=== PATIENT | male | born 1990 | race American Indian/Alaskan Native ===

== ENCOUNTER 2017-04-18 03:56 | Emergency (ER) | payer OTHER ==
[2017-04-18 05:34] VITALS: BP 119/67
[2017-04-18 06:16] LABS: Hematocrit 49.9 % (35.5-45.6); Hemoglobin 16.7 gm/dl (11.8-15.2); Mean Corpuscular HGB Conc 33 % (32-34); Mean Corpuscular Hemoglobin 31 pg (28-32); Mean Corpuscular Volume 92 fl (84-94); Platelet Count 184 K/mm3 (140-440); Red Blood Count 5.42 M/mm3 (3.65-5.03); Red Cell Distribution Width 12.9 % (13.2-15.2); White Blood Count 8.8 K/mm3 (4.5-11.0)
[2017-04-18 06:22] LABS: Alanine Aminotransferase 14 units/L (7-56); Albumin 4.7 g/dL (3.9-5); Albumin/Globulin Ratio 1.9 %; Alkaline Phosphatase 52 units/L (35-129); Anion Gap 18 mmol/L; BUN/Creatinine Ratio 12; Blood Urea Nitrogen 12 mg/dL (9-20); Calcium 9.3 mg/dL (8.4-10.2); Carbon Dioxide 27 mmol/L (22-30); Glucose 122 mg/dL (75-100); Lipase 47 units/L (13-60); Potassium 4.2 mmol/L (3.6-5.0); Sodium 145 mmol/L (137-145); Total Protein 7.2 g/dL (6.3-8.2)
[2017-04-18 07:19] LABS: Basophils % (Manual) 0 % (0.0-1.8); Blastocytes % (Manual) 0 %
[2017-04-18 07:22] LABS: Anisocytosis 1+; Diff Status Complete; Ovalocytes 1+
[2017-04-18 07:36] LABS: Bilirubin,Urine NEG (Negative); Blood,Urine SM (Negative); Ketones,Urine TR mg/dL (Negative); Leukocyte Esterase,Urine NEG (Negative); Nitrite,Urine NEG (Negative); Urobilinogen,Urine < 2.0 mg/dL (<2.0)
== END 2017-04-18 09:10 | disposition left against medical advice (07) ==
LOC: ED 03:56
DX: R11.2 Nausea with vomiting, unspecified (principal); R10.9 Unspecified abdominal pain; Z53.21 Procedure and treatment not carried out due to patient leaving prior to being seen by health care provider
CPT/HCPCS: 36415; 80053; 81001; 83690; 85007; 85025

== ENCOUNTER 2021-07-29 02:07 | Emergency (ER) | payer SELFPAY ==
[2021-07-29 02:19] VITALS: BP 113/77
--- NOTE | 2021-07-29 02:45 | XRay Report ---
CHEST 2 VIEWS INDICATION / CLINICAL INFORMATION: difficulty breathing, cough. COMPARISON: None available. FINDINGS: SUPPORT DEVICES: None. HEART / MEDIASTINUM: No significant abnormality. LUNGS / PLEURA: No significant pulmonary or pleural abnormality. No pneumothorax. ADDITIONAL FINDINGS: No significant additional findings. IMPRESSION: 1. No acute findings. Signer Name: Mirza Anderson MD Signed: 07/29/2021 2:41 AM Workstation Name: [id number]
--- NOTE | 2021-07-29 03:01 | Emergency Department Report ---
ED General Adult HPI - General Chief complaint: Dyspnea/Respdistress Stated complaint: BHASKAR Time Seen by Provider: 07/29/21 02:54 Source: patient, RN notes reviewed Mode of arrival: Ambulatory Limitations: No Limitations - History of Present Illness Initial comments: This patient is a 30-year-old gentleman with a history of chronic bronchitis and tobacco use, presenting to the ER today with a complaint of chest tightness, cough, wheezing and shortness of breath. Denies DVT/PE risk factors. Denies loss of taste and smell. States he is motivated to discontinue tobacco consumption. -: Gradual Consistency: constant Improves with: medication, rest Worsens with: movement - Related Data Previous Rx's Medication Instructions Recorded Last Taken Type Albuterol Sulfate [Ventolin HFA] 2 puff IH Q4H PRN #1 hfa.aer.ad 08/26/13 Unknown Rx Loratadine (Nf) [Claritin] 10 mg PO DAILY #30 tablet 08/26/13 Unknown Rx predniSONE [Deltasone] 20 mg PO TID #15 tab 08/26/13 Unknown Rx Albuterol Sulfate [Proair 90 mcg IH Q4HR PRN #2 aer.pow.ba 07/29/21 Unknown Rx Respiclick] Nicotine Polacrilex [Nicotine Gum] 4 mg BC PRN #1 pack 07/29/21 Unknown Rx predniSONE [Deltasone] 40 mg PO QDAY #8 tab 07/29/21 Unknown Rx Allergies Allergy/AdvReac Type Severity Reaction Status Date / Time No Known Allergies Allergy Verified 08/19/13 06:08 ED Review of Systems ROS: Stated complaint: BHASKAR Other details as noted in HPI Constitutional: malaise. denies: fever Eyes: denies: eye discharge ENT: congestion Respiratory: cough, shortness of breath, wheezing Cardiovascular: other (Chest tightness with cough). denies: syncope Gastrointestinal: denies: abdominal pain Neurological: weakness Psychiatric: anxiety ED Past Medical Hx - Social History Smoking Status: Current Every Day Smoker Substance Use Type: Alcohol - Medications Home Medications: Home Medications Medication Instructions Recorded Confirmed Last Taken Type Albuterol Sulfate [Ventolin HFA] 2 puff IH Q4H PRN #1 hfa.aer.ad 08/26/13 Unknown Rx Loratadine (Nf) [Claritin] 10 mg PO DAILY #30 tablet 08/26/13 Unknown Rx predniSONE [Deltasone] 20 mg PO TID #15 tab 08/26/13 Unknown Rx Albuterol Sulfate [Proair 90 mcg IH Q4HR PRN #2 aer.pow.ba 07/29/21 Unknown Rx Respiclick] Nicotine Polacrilex [Nicotine Gum] 4 mg BC PRN #1 pack 07/29/21 Unknown Rx predniSONE [Deltasone] 40 mg PO QDAY #8 tab 07/29/21 Unknown Rx ED Physical Exam - General Limitations: No Limitations General appearance: alert, anxious, in distress - Head Head exam: Present: atraumatic, normocephalic - Eye Eye exam: Present: normal appearance, EOMI. Absent: nystagmus - ENT ENT exam: Present: normal exam, normal orophraynx, mucous membranes moist, normal external ear exam - Neck Neck exam: Present: normal inspection, full ROM. Absent: tenderness, meningismus - Respiratory Respiratory exam: Present: wheezes, rhonchi, chest wall tenderness. Absent: respiratory distress, rales, stridor - Cardiovascular Cardiovascular Exam: Present: regular rate, normal rhythm, normal heart sounds. Absent: bradycardia, tachycardia, irregular rhythm, systolic murmur, diastolic murmur, rubs, gallop - GI/Abdominal GI/Abdominal exam: Present: soft. Absent: distended, tenderness, guarding, rebound, rigid, pulsatile mass - Rectal Rectal exam: Present: deferred - Extremities Exam Extremities exam: Present: normal inspection, full ROM, other (2+ pulses noted in the bilateral upper and lower extremities. There is no palpable cord. negative Homans sign. Muscular compartments are soft. The pelvis is stable.). Absent: pedal edema, calf tenderness - Back Exam Back exam: Present: normal inspection, full ROM. Absent: tenderness, CVA tenderness (R), CVA tenderness (L), paraspinal tenderness, vertebral tenderness - Neurological Exam Neurological exam: Present: alert, oriented X3, normal gait, other (No facial droop. Tongue midline. Extraocular movements intact bilaterally. Facial sensation intact to light touch in V1, V2, V3 distribution bilaterally. 5 and a 5 strength in 4 extremities. Sensation intact to light touch in 4 extremities.). Absent: motor sensory deficit - Psychiatric Psychiatric exam: Present: anxious - Skin Skin exam: Present: warm, dry, intact, normal color. Absent: rash ED Course Vital Signs 04/05/22 04/05/22 04/05/22 02:13 03:17 03:56 Temperature 97.8 F Pulse Rate 104 H Pulse Rate [ 97 H Bilateral] Respiratory 28 H 16 Rate Respiratory 20 Rate [Bilateral ] Blood Pressure 113/77 O2 Sat by Pulse 91 Oximetry - Reevaluation(s) Reevaluation #1: 07/29/21 04:17 Differential diagnosis, including but not limited to: Bronchitis, reactive airways disease, encounter for tobacco cessation Assessment and plan: 30-year-old gentleman, who denies DVT/PE risk factors, who is low risk by Wells criteria for pulmonary embolism, presenting with probable reactive airways disease exacerbation/bronchitis. Place patient on secured entrance monitor, start albuterol, Atrovent, steroids. X-ray the chest unremarkable. EKG not consistent with STEMI. Laboratory studies ordered by physician neurology physician assistant. They are unremarkable. 07/29/21 04:34 The patient is reassessed. He is sleeping in his stretcher. O2 sat 100%. Respiratory rate is 12-14. Heart rate 75 to 80 bpm. Wheezing is completely resolved. He endorses readiness for discharge. Explained significance of findings to patient. He articulates understanding. 07/29/21 04:35 ED Medical Decision Making - Lab Data Result diagrams: 07/29/21 02:37 07/29/21 02:37 Vital Signs 07/29/21 07/29/21 07/29/21 02:13 03:17 03:56 Temperature 97.8 F Pulse Rate 104 H Pulse Rate [ 97 H Bilateral] Respiratory 28 H 16 Rate Respiratory 20 Rate [Bilateral ] Blood Pressure 113/77 O2 Sat by Pulse 91 Oximetry Lab Results 07/29/21 07/29/21 Range/Units 02:37 02:37 WBC 5.8 (4.5-11.0) K/mm3 RBC 4.95 (3.65-5.03) M/mm3 Hgb 16.4 H (11.8-15.2) gm/dl Hct 46.3 H (35.5-45.6) % MCV 94 (84-94) fl MCH 33 H (28-32) pg MCHC 36 H (32-34) % RDW 13.2 (13.2-15.2) % Plt Count 262 (140-440) K/mm3 Lymph % (Auto) 44.7 H (13.4-35.0) % [place] % (Auto) 7.4 H (0.0-7.3) % Eos % (Auto) 10.4 H (0.0-4.3) % Baso % (Auto) 0.9 (0.0-1.8) % Lymph # (Auto) 2.6 (1.2-5.4) K/mm3 [place] # (Auto) 0.4 (0.0-0.8) K/mm3 Eos # (Auto) 0.6 H (0.0-0.4) K/mm3 Baso # (Auto) 0.1 (0.0-0.1) K/mm3 Seg Neutrophils % 36.6 L (40.0-70.0) % Seg Neutrophils # 2.1 (1.8-7.7) K/mm3 Sodium 141 (137-145) mmol/L Potassium 4.1 (3.6-5.0) mmol/L Chloride 103.9 (98-107) mmol/L Carbon Dioxide 25 (22-30) mmol/L Anion Gap 16 mmol/L BUN 10 (9-20) mg/dL Creatinine 1.2 (0.8-1.3) mg/dL Estimated GFR > 60 ml/min BUN/Creatinine Ratio 8 % Glucose 107 H (75-100) mg/dL Calcium 9.1 (8.4-10.2) mg/dL Total Bilirubin 0.80 (0.1-1.2) mg/dL AST 22 (5-40) units/L ALT 22 (7-56) units/L Alkaline Phosphatase 78 (35-129) units/L Total Protein 7.9 (6.3-8.2) g/dL Albumin 4.7 (3.9-5) g/dL Albumin/Globulin Ratio 1.5 % - EKG Data -: EKG Interpreted by Dc EKG shows normal: sinus rhythm Rate: normal - EKG Data 07/29/21 04:15 The EKG is interpreted at 03: 02 Sinus rhythm, rate 91 bpm. Rightward axis deviation. Normal P wave axis. High left ventricular voltage. Motion artifact. Atrial enlargement. Not a STEMI. - Radiology Data Radiology results: pending, report reviewed, image reviewed CHEST 2 VIEWS INDICATION / CLINICAL INFORMATION: difficulty breathing, cough. COMPARISON: None available. FINDINGS: SUPPORT DEVICES: None. HEART / MEDIA STINUM: No significant abnormality. LUNGS / PLEURA: No significant pulmonary or pleural abnormality. No pneumothorax. ADDITIONAL FINDINGS: No significant additional findings. IMPRESSION: 1. No acute findings. Signer Name: Mirza Anderson MD Signed: 07/29/2021 1:41 AM Workstation Name: [id number] Critical Care Time: Yes Critical care time in (mins) excluding proc time.: 35 Critical care attestation.: If time is entered above; I have spent that time in minutes in the direct care of this critically ill patient, excluding procedure time. ED Disposition Clinical Impression: Bronchitis, Encounter for tobacco use cessation counseling Disposition: HOME / SELF CARE / HOMELESS Is pt being admited?: No Does the pt Need Aspirin: No Condition: Good Instructions: Upper Respiratory Infection, Adult, Steps to Quit Smoking, Chronic Bronchitis (ED) Additional Instructions: Please discontinue tobacco consumption. Take the medications as needed and directed. Symptoms of bronchitis sometimes take 3 to 6 weeks to resolve. Please follow-up with an outpatient primary care doctor within the next 2 weeks. Please return to the emergency room right away with new pain, worsened pain, migration of pain, projectile vomiting, change in mental status, confusion, inability tolerate liquid feeds, new, worsened or different symptoms not present on the initial emergency room evaluation Prescriptions: predniSONE [Deltasone] 40 mg PO QDAY #8 tab Nicotine Polacrilex [Nicotine Gum] 4 mg BC PRN #1 pack Albuterol Sulfate [Proair Respiclick] 90 mcg IH Q4HR PRN #2 aer.pow.ba PRN Reason: Wheezing Referrals: JACK RITCHIE MD [Primary Care Provider] - 3-5 Days Forms: Work/School Release Form(ED)
[2021-07-29 03:03] LABS: Basophils # (Auto) 0.1 K/mm3 (0.0-0.1); Basophils % (Auto) 0.9 % (0.0-1.8); Eosinophils # (Auto) 0.6 K/mm3 (0.0-0.4); Eosinophils % (Auto) 10.4 % (0.0-4.3); Lymphocytes # (Auto) 2.6 K/mm3 (1.2-5.4); Lymphocytes % (Auto) 44.7 % (13.4-35.0); Mean Corpuscular HGB Conc 36 % (32-34); Mean Corpuscular Volume 94 fl (84-94); Monocytes # (Auto) 0.4 K/mm3 (0.0-0.8); Monocytes % (Auto) 7.4 % (0.0-7.3); Platelet Count 262 K/mm3 (140-440); Red Blood Count 4.95 M/mm3 (3.65-5.03); Red Cell Distribution Width 13.2 % (13.2-15.2)
[2021-07-29 03:05] LABS: Hematocrit 46.3 % (35.5-45.6); Hemoglobin 16.4 gm/dl (11.8-15.2)
[2021-07-29] MEDS: IPRATROPIUM 0.02% NEBU 2.5 ML IH ONE (03:16)
[2021-07-29] MEDS: ALBUTEROL 2.5 MG/3 ML NEBU IH ONE (03:17)
[2021-07-29 03:26] LABS: Alanine Aminotransferase 22 units/L (7-56); Albumin 4.7 g/dL (3.9-5); BUN/Creatinine Ratio 8; Blood Urea Nitrogen 10 mg/dL (9-20); Calcium 9.1 mg/dL (8.4-10.2); Hemolysis Index 15
[2021-07-29] MEDS: IBUPROFEN 400 MG TAB PO ONE (03:56)
[2021-07-29] MEDS: predniSONE 20 MG TAB PO ONE (03:57)
--- NOTE | 2021-07-29 11:56 | Electrocardiograph Report ---
[facility] Test Date: 2021-07-29 Test Time: 03:02:50 Pat Name: JULIA SÁNCHEZ Department: Room: Gender: M Home Theatre Technician: [id number] : 1990 Requested By: PAGE OSMAN Order Number: [id number] Reading MD: Ashu Shaw Measurements Intervals Glady Rate: 91 P: 82 DC: 182 QRS: 101 QRSD: 76 T: 40 QT: 341 QTc: 421 Interpretive Statements Sinus rhythm Probable left atrial enlargement Lateral infarct, old No previous ECG available for comparison Electronically Signed On 07-29-2021 11:56:31 EDT by Ashu Shaw
== END 2021-07-29 04:49 | disposition home or self-care (01) ==
LOC: ED 02:07
DX: J40 Bronchitis, not specified as acute or chronic (principal); F17.200 Nicotine dependence, unspecified, uncomplicated; Z72.89 Other problems related to lifestyle; Z79.899 Other long term (current) drug therapy
CPT/HCPCS: 36415; 71046; 80053; 85025; 93005; 94644; 99284